=== PATIENT | female | born 1995 | race Caucasian/White ===

== ENCOUNTER 2022-06-03 00:57 | Emergency (ER) | payer SELFPAY ==
[~2022-06-03] VITALS: Ht 158.5 cm; Wt 54.4 kg
[2022-06-03] MEDS ORDERED: CLINDAMYCIN 150 MG (CLEOCIN) CAP PO ONE ×2 (01:25→01:30)
[2022-06-03] MEDS ORDERED: LIDOCAINE 1% INJ 20 ML VIAL ONE (01:25)
[2022-06-03] MEDS ORDERED: LIDOCAINE 1% INJ 20 ML VIAL INJ ONE (01:30)
--- NOTE | 2022-06-03 01:41 | ED EENT ---
History of Present Illness General Chief Complaint: Dental Problems/Pain Stated Complaint: TOOTH PAIN Nursing Triage Note: PATIENT VERBALIZED SHE HAS A BROKEN INFECTED TOOTH LEFT UPPER SIDE. PATIENT STATES SHE IS ON AUGMENTIN BUT HAS NOT TAKEN MEDS REGULARLY, STATES SHE HAS MISSED A FEW DOSES. PATIENT STATES TONIGHT SHE NOTICED SWELLING ON LEFT SIDE UPPER TOOTH, AREA SWOLLEN, APPEARS BLACK IN COLOR. PATIENT STATES WHEN SHE SAW THE DENTIST YESTERDAY THIS WAS NOT THERE. STATES STARTED THIS EVENING OUT A YELLOW AREA, DRAINED AND BLEED. STATES TOOK IBUPROFIN AND TYLENOL, USED A HEATING PAD ON AREA. Source: patient Exam Limitations: no limitations History of Present Illness Date Seen by Provider: Jun 03, 2022 Time Seen by Provider: 01:14 Initial Comments This 26-year-old young lady presents to the emergency room with a dental abscess. She has a broken upper molar and has developed an abscess posterior to that. She has been on Augmentin prescribed by her primary care provider for about a week but has not taken it regularly. She went to the dentist yesterday and was prescribed a second antibiotic. She has not started that yet because the pharmacy was closed. She has been taking Tylenol and ibuprofen for pain. Since visiting the dentist the abscess has grown significantly and has started draining. She has 2 dark necrotic spots on her gum where the abscess is draining. Although the abscess is draining, the purulent material is very thick and cannot be expressed without severe pain. She has been afebrile. When we discussed incision and drainage of the abscess, she became very anxious. Allergies and Home Medications Allergies Coded Allergies: No Known Drug Allergies (Unverified , 06/03/22) Patient Home Medication List Home Medication List Reviewed: Yes Review of Systems Review of Systems Constitutional: no symptoms reported Eyes: No Symptoms Reported Ears: No Symptoms Reported Nose: no symptoms reported Mouth: see HPI Throat: no symptoms reported Respiratory: no symptoms reported Cardiovascular: no symptoms reported Gastrointestinal: no symptoms reported Musculoskeletal: no symptoms reported Skin: no symptoms reported Neurological: Anxiety Hematologic/Lymphatic: No Symptoms Reported Past Ibczupl-Mxmzoh-Zwzvaw Hx Patient Social History Tobacco Use?: No Use of E-Cig and/or Vaping dev: No Substance use?: No Alcohol Use?: Yes Immunizations Up To Date Influenza Vaccine Up-to-Date: No; Not Current First/Initial COVID19 Vaccinat: DENIES Second COVID19 Vaccination Gaetano: DENIES Past Medical History Surgery/Hospitalization HX: DENIES Physical Exam Vital Signs Vital Signs - First Documented 06/03/22 01:05 Temp 36.6 Pulse 104 Resp 20 B/P (MAP) 131/90 (104) Pulse Ox 100 O2 Delivery Room Air Height, Weight, BMI Height: '" Weight: lbs. oz. 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 Adequate anesthesia was achieved. Patient was pretreated with gauze pads soaked in lidocaine. 2 small incisions about 4 mm deep were made over the most fluctuant area of the abscess. Incisions resulted in drainage of serosanguineous fluid and bleeding. There is no significant purulent drainage. Patient did experience relief of pressure with the procedure. Anesthetic gauze pads were applied after the procedure with further improvement in pain. Progress/Results/Core Measures Results/Orders My Orders Orders - AKIRA KAUFFMAN MD Lidocaine 1% Inj 20 Ml (Xylocaine 1% Inj (06/03/22 01:30) Clindamycin Capsule (Cleocin Capsule) (06/03/22 01:30) Clindamycin Capsule (Cleocin Capsule) (06/03/22 01:25) Lidocaine 1% Inj 20 Ml (Xylocaine 1% Inj (06/03/22 01:25) Lidocaine 2% Viscous 15 Ml (Xylocaine Vi (06/03/22 02:00) Lidocaine 2% Viscous 15 Ml (Xylocaine Vi (06/03/22 02:02) Medications Given in ED Current Medications Medications Dose Ordered Sig/Dimitry Route Start Time Stop Time Status Last Admin Dose Admin Clindamycin HCl 450 mg ONCE ONCE PO 06/03/22 01:30 06/03/22 01:31 DC 06/03/22 02:03 450 MG Lidocaine HCl 15 ml ONCE ONCE PO 06/03/22 02:00 06/03/22 02:01 DC 06/03/22 02:03 15 ML Lidocaine HCl 20 ml ONCE ONCE INJ 06/03/22 01:30 06/03/22 01:31 DC 06/03/22 01:34 5 ML Vital Signs/I&O 06/03/22 06/03/22 01:05 02:24 Temp 36.6 36.6 Pulse 104 104 Resp 20 20 B/P (MAP) 131/90 (104) 131/90 Pulse Ox 100 100 O2 Delivery Room Air Room Air Blood Pressure Mean: 104 Progress Progress Note #1: Time: 01:40 Progress Note Patient was interviewed and examined. She was found to have a significant abscess on the lateral gumline posterior to the fractured tooth. I attempted to express the purulent material manually with my finger, but she was not able to tolerate the pain. I offered local anesthetic injection with incision and drainage to fully evacuate the abscess. She was agreeable. She is quite anxious about the procedure but declines anxiolytics. Progress Note #2: Time: 02:30 Progress Note Patient underwent local anesthesia with injection of lidocaine lateral and posterior to the gumline near the abscess. She did experience relief. Approximately 2 mL of lidocaine was used. She was pretreated with gauze soaked with lidocaine. Abscess was then incised with 2 small incisions. I attempted to express the abscess. Apparently the majority of the purulent material had already drained from the abscess as only serosanguineous and bloody fluid was expressed. She did experience relief of pressure with the procedure. She received clindamycin 450 mg for additional antibiotic therapy. She declined any further treatment for pain. Anesthetic gauze pads were prepped for the patient and dispensed with her to take home. Departure Impression Primary Impression: Dental abscess Disposition: HOME, SELF-CARE Condition: Improved Departure-Patient Inst. Decision time for Depature: 02:16 Referrals: ALEJANDRO KURTZ APRN (PCP/Family) Primary Care Physician Patient Instructions: Tooth Abscess (DC) Add. Discharge Instructions: Start the antibiotic prescribed by your dentist as soon as you can in the morning. Do not miss any doses of your antibiotic. For pain control you may take ibuprofen up to 600 mg every 6 hours and Tylenol (acetaminophen) up to 1000 mg every 6 hours as needed. You have multiple openings at the tip of your abscess. These should continue to drain. You may encourage draining by gently trying to milk out the abscess with your finger, moving your finger from the base of your gum were your gum contacts your cheek and sweeping downward toward the opening of the abscess. You may use the anesthetic gauze pads provided from the ER to provide topical pain relief. Place a gauze pad directly over areas of superficial pain and/or over the fractured tooth. Rinse your fingers after touching to avoid numbness on your fingers. Eat and drink very carefully after using anesthetic gauze pads to avoid burning or injuring your mouth as your mouth and throat may be numb. Do not fall asleep with gauze pads in your mouth as this may present a choking risk. Contact your dentist in the morning to let them know you were seen in the emergency room. You were given clindamycin 450 mg for additional antibiotic therapy in the ER. If you develop new or worsening symptoms such as fever, chills, severe headache, racing heart, escalating pain not responsive to medications, vomiting, etc., please return to the emergency room for further evaluation. These symptoms could indicate a worsening infection or sepsis. All discharge instructions reviewed with patient and/or family. Voiced understanding. Copy Copies To 1: [facility]/AKIRA LORENZO MD Jun 03, 2022 01:41
[2022-06-03] MEDS ORDERED: LIDOCAINE 2% VISCOUS 15 ML UDC PO ONE (02:00)
[2022-06-03] MEDS ORDERED: LIDOCAINE 2% VISCOUS 15 ML UDC ONE (02:02)
[2022-06-03 02:24] VITALS: BP 131/90
== END 2022-06-03 02:40 | disposition home or self-care (01) ==
LOC: ER FS 00:59
DX: K04.7 Periapical abscess without sinus (principal); Z28.310 Unvaccinated for COVID-19
CPT/HCPCS: 99284